=== PATIENT | female | born 1950 | race Caucasian/White ===

== ENCOUNTER 2024-06-28 07:55 | Outpatient (AMB) | payer MEDICARE, MEDICAID, SELFPAY ==
--- NOTE | 2024-06-28 07:58 | A.OFFVIS_ITS ---
Vital Signs 06/28/24 08:24 Height 5 ft 7 in Weight 134 lb 14.766 oz BMI 21.1 BP 100/70 Blood Pressure Location Rt brachial Position Sitting Pulse 78 Pulse Source Pulse Oximeter Pulse Oximetry (%) 98 Oxygen Delivery Method Room Air Intake Visit Reasons: [place] screening. Poss. Crohn's Intake Note: NEW PATIENT for repeat colo screening (last within 3 years via [facility]). Crohn's consult. Heavy FMHx reported. Chief Complaint; C/O constipation (moderate to severe per pt). Pt reports hx of GERD but well controlled with omeprazole. Pt denies any additional GI concerns at this time. Lining Maker Hand Required: No Accompanied by: Self / Same As Patient Allergies azithromycin Allergy (Unknown, Verified 06/28/24 08:13) Unknown cefaclor [From Ceclor] Allergy (Unknown, Verified 06/28/24 08:13) Unknown moxifloxacin Allergy (Unknown, Verified 06/28/24 08:13) Unknown codeine Adverse Reaction (Intermediate, Verified 06/28/24 08:13) Abdominal Pain morphine Adverse Reaction (Intermediate, Verified 06/28/24 08:13) Abdominal Pain HPI HPI [place] screening. Poss. Crohn's: Details: 74-year-old female with past medical history of arthritis, aortic valve regurgitation, anxiety is here today for initial consultation. Patient reports left lower quadrant pain and constipation. Patient reports that she has been taking Colace and usually feels like she empties her bowels well. Patient was seen in the ER on June 12 for shortness breath, chest pain and fall. ACS ruled out with EKGs and troponin, CT scan performed and it showed no acute processes except for large colonic stool burden without obstruction. Patient reports colonoscopy lost 2 years ago at [facility] unable to get port at this time, will request medical records. Patient reports also colonoscopy in the past in [place] years. Patient reports that she has a family history of Crohn's disease. Was told in the past that she has diverticulosis. No polyps found as far as she remembers. However she was told to return for colonoscopy in 5 years. Patient denies melena, hematochezia, unintentional weight loss or ribbon like stools. Patient is denies any dyspepsia, dysphagia or odynophagia. Patie nt reports left lower quadrant pain, relieved after bowel movement. Frequent abdominal bloating [facility] Medical History (Updated 06/28/24 @ 10:56 by Becca Ha, [facility]) Constipation Anxiety GERD (gastroesophageal reflux disease) Arthritis Family history of Crohn's disease Hyperlipidemia Surgical History (Updated 06/28/24 @ 08:18 by Scto Valero [facility]) Hx of colonoscopy (~2022) Family History (Updated 06/28/24 @ 08:19 by NASRIN Osullivan) Family/Other Crohn disease Review of Systems Const Denies weight gain and Denies weight loss ENT Reports no additional complaints, Denies dysphagia and Denies odynophagia Card Reports no additional complaints Resp Reports no additional complaints GI Reports abdominal pain (LLQ), Denies belching, Denies melena, Reports bloating, Denies change in bowel habits, Reports constipation, Denies dysphagia, Denies excessive flatus, Denies dyspepsia, Denies heartburn, Denies diarrhea, Denies loose stools, Denies nausea, Denies odynophagia and Denies vomiting Reports no additional complaints Musc Reports no additional complaints Neuro Reports no additional complaints Psych Reports no additional complaints Endo Reports no additional complaints Physical Exam Vital Signs: Last Vital Signs Pulse 78 06/28/24 08:24 BP 100/70 06/28/24 08:24 Pulse Ox 98 06/28/24 08:24 Oxygen Delivery Method Room Air 06/28/24 08:24 BMI result Body Mass Index 21.1 Const General: healthy appearing, no acute distress and well developed Nutritional Appearance: well nourished Orientation/consciousness: patient oriented x3 Resp Effort & Inspection: normal respiratory effort, able to speak in complete sentences, no tracheal deviation and symmetric chest movement Auscultation: clear to auscultation bilaterally Cardio Rate: regular rate GI Inspection: Yes normal to inspection and No distended Palpation (GI): Soft to palpation, not firm, nontender and No hepatosplenomegaly present Auscultation: normal bowel sounds General: Yes no CVA tenderness Back/Spine/Pelvis Back: no CVA tenderness Skin General skin exam: elasticity normal, turgor normal and dry skin Neuro General: patient oriented x3 Psych Appearance: grossly normal Mental Status: mental status grossly normal Assessment & Plan Assessment & Plan (1) Family history of Crohn's disease: Code(s): Z83.79 - Family history of other diseases of the digestive system Category: Medical (2) Postprandial abdominal bloating: Code(s): R14.0 - Abdominal distension (gaseous) (3) GERD (gastroesophageal reflux disease): Code(s): K21.9 - Gastro-esophageal reflux disease without esophagitis Qualifiers: Esophagitis presence: esophagitis presence not specified Qualified Code(s): K21.9 - Gastro-esophageal reflux disease without esophagitis (4) Constipation: Code(s): K59.00 - Constipation, unspecified Qualifiers: Constipation type: slow transit constipation Qualified Code(s): K59.01 - Slow transit constipation (5) Diverticulosis: Code(s): K57.90 - Diverticulosis of intestine, part unspecified, without perforation or abscess without bleeding Plan Will rule out Crohn's, CRP and fecal calprotectin. Patient will try Benefiber with pre and probiotics. Will start her on senna. If CRP and calprotectin positive patient will be sent for colonoscopy and then possible CT enterography. Increase fluid intake and activity to promote better bowel motility. Patient is agreeable to current plan of care and verbalizes understanding of instructions. She was given the opportunity to ask questions and all questions answered. Thank you for allowing me to participate in her care Orders: Orders C Reactive Protein Today K58.9 - Irritable bowel syndrome, unspecified Calprotectin, Fecal Today R15.9 - Full incontinence of feces Medications: New sennosides (Natural Senna Laxative) 17.2 mg (2 x 8.6 mg) PO BEDTIME 60 tabs 3RF constipation K59.00 - Constipation, unspecified Coding Level of Care Code New Pt Level 3 (46946) Diagnoses Family history of Crohn's disease Z83.79 Postprandial abdominal bloating R14.0 Gastroesophageal reflux disease, unspecified whether esophagitis present K21.9 Esophagitis presence: esophagitis presence not specified Slow transit constipation K59.01 Constipation type: slow transit constipation Diverticulosis K57.90 Time Spent (min) 40 Comment 30 minutes spent with patient and additional 10 minutes spent reviewing her records
--- OUTSIDE RECORDS SUMMARY | 2024-06-28 08:00 | XMS_ITS | Clinical Summary ---
Author Organization [address] [place] [address] [place] [phone] Phone Care Team Providers Care Machine Paint Mixer Name Role Phone Kathia Durand Primary Care Provider Allergies Active Allergy Reactions Criticality Noted Date Comments Cefaclor 03/27/2018 Erythromycin 03/27/2018 Moxifloxacin 03/27/2018 Medications inclisiran (Leqvio) 284 mg/1.5 mL syringe injcetion Inject 1.5 mL into the skin Every 3 Months. 4 Active omega 5-ufl-umj-fish oil (Fish OiL) 1,200 (144-216) mg capsule Take by mouth 2 times daily. 2 Active UNABLE TO FIND Take by mouth 1 (one) time each day. VITAMIN D OR Active ALPRAZolam (XANAX) 1 mg tablet Take 1 mg by mouth at bedtime. Active oxyCODONE-acet aminophen (PERCOCET) 7.5-325 mg per tablet Take 1 tablet by mouth every 4 (four) hours if needed. Active cyanocobalamin (VITAMIN B-12) 1,000 mcg tablet Take 1 tablet (1,000 mcg total) by mouth 1 (one) time each day. Active rosuvastatin (CRESTOR) 20 mg tablet Take 1 tablet (20 mg total) by mouth 1 (one) time each day. Active aspirin 81 mg EC tablet TAKE 1 TABLET BY MOUTH EVERY DAY 90 tablet 1 5 Active aspirin 81 mg EC tablet Take 1 tablet (81 mg total) by mouth 1 (one) time each day. 4 06/18/19 25 Discontinued Active Problems Problem Noted Date Diagnosed Date Carotid bruit 06/23/2023 Carotid artery disease 01/12/2021 Overview (03/22/2024): Last Assessment & Plan: She has history of mild carotid artery disease as outlined in detail above. Her most recent carotid duplex shows no significant change when compared to her previous duplex from 2021. We once again discussed risk factor reducing strategies such as taking an aspirin and being on a statin. She is now agreeable to start these and she will begin a baby aspirin along with a low-dose rosuvastatin. Chest pain 01/12/2021 Overview (03/22/2024): Last Assessment & Plan: Patient is reporting recurrent chest discomfort. Will start amlodipine and anginal and arrange for nuclear stress test. Coronary artery calcification 01/12/2021 Overview (03/22/2024): Last Assessment & Plan: We once again discussed her history of aortic calcification captured on CT scan in the past. She has undergone extensive cardiac workup including a stress test and echocardiogram as outlined in detailed above. We had a long discussion again regarding risk after modifying strategies. She is quite anxious regarding her brother's and is concerned that she is not on any medical therapies for her heart. Once again reviewed all of her testing results and recommendations for aspirin and statin. She is agreeable and we will update a lipid panel in 12 weeks. I have reviewed with the patient the importance of a heart healthy lifestyle which includes eating a low-fat low-salt diet, getting regular exercise, maintaining a healthy weight, not smoking, and following up with routine medical care. Mixed hyperlipidemia 01/12/2021 Overview (03/22/2024): Last Assessment & Plan: Goal LDL cholesterol is less than 70. She is willing to restart statin. In the past we did discuss PSK 9 inhibitors such as Repatha and Praluent. We also discussed Leqvio in the past and we did order this. It is unclear if she decided not to move forward with this. She did not mention this today. This is still an option if she is willing in the future. Encounters Date Type Department Care Team Description 06/11/2024 Telephone [facility] - [address] [place] [address] Karan Pedroza MD Chest Pain 05/11/2024 3:00 PM EST Office Visit [facility] - [facility] [address] [facility] [address] [place] [phone] Karan Pedroza MD Bilateral carotid artery disease, unspecified type (CMS/HCC) (Primary Dx); Coronary artery calcification; Mixed hyperlipidemia from Last 3 Months Medical History Medical History Date Comments Family history of cardiovascular disease DX:Family history of cardiovascular disease Hypercholesterolemia DX:Hypercho lesterolemia Family History Medical History Relation Name Comments Heart attack Father Relation Name Status Comments Father Social History Tobacco Use Types Packs/Day Years Used Date Smoking Tobacco: Former Smokeless Tobacco: Never Alcohol Use Standard Drinks/Week Comments Not Currently 0 (1 standard drink = 0.6 oz pur e alcohol) Comments Unknown Sex and Gender Information Value Date Recorded Sex Assigned at Not on file Legal Sex Female 6:23 AM EST Gender Identity Not on file Sexual Orientation Not on file Obstetrics History Last Filed Vital Signs Vital Sign Reading Time Taken Comments Blood Pressure 122/60 05/11/2024 3:15 PM EST Pulse 82 05/11/2024 3:15 PM EST Temperature - - Respiratory Rate - - Oxygen Saturation 96% 05/11/2024 3:15 PM EST Inhaled Oxygen Concentration - - Weight 60.3 kg (133 lb) 05/11/2024 3:15 PM EST Height 170.2 cm (5' 7 ) 05/11/2024 3:15 PM EST Body Mass Index 20.83 05/11/2024 3:15 PM EST Plan of Treatment Health Maintenance Due Date Last Done Comments Breast Cancer Screening 1950 Zoster Vaccines (1 of 2) 01/02/2002 Pneumococcal Vaccine: 50+ Years (2 of 2 - PPSV23) 07/10/2019 07/09/2018 Cholesterol Screening (Lipid Panel) 03/17/2022 Colorectal Cancer Screening: Colonoscopy 03/17/2022 Depression Screening 03/17/2022 Falls Risk Assessment 03/17/2022 Hepatitis C Screening 03/17/2022 Medicare Annual Wellness Visit 03/17/2022 Osteoporosis Screening (Bone Density Screening) 03/17/2022 Social Influencers of Health Screening 03/17/2022 Hypertension/CHF/CAD Annual BMP Blood Test 11/11/2023 08/04/2000 COVID-19 Vaccine ( season) 2023 03/19/2021, 07/21/2020, 06/24/2020 Influenza Vaccine (#1) 2023 0, 07/10/2018, 07/09/2018, Additional history exists RSV Immunization Patients 60+ Years Old (1 - 1-dose 75+ series) 01/02/2027 DTaP,Tdap,and Td Vaccines (3 - Td or Tdap) 06/10/2029 06/10/2019, 07/30/2017 HIB Vaccines Aged Out No longer eligi ble based on patient's age to complete this topic HPV Vaccines Aged Out No longer eligi ble based on patient's age to complete this topic Hepatitis A Vaccines Aged Out No long er eligible based on patient's age to complete this topic Hepatitis B Vaccines Aged Out No long er eligible based on patient's age to complete this topic IPV Vaccines Aged Out No longer eligi ble based on patient's age to complete this topic MMR Vaccines Aged Out No longer eligi ble based on patient's age to complete this topic Meningococcal ACWY Vaccine Aged Out N o longer eligible based on patient's age to complete this topic Meningococcal B Vacine Aged Out No lo nger eligible based on patient's age to complete this topic RSV Immunization Patients Under 20 months Aged Out No longer eligible based on patient's age to complete this topic Varicella Vaccines Aged Out No longer eligible based on patient's age to complete this topic Procedures Procedure Name Priority Date/Time Associated Diagnosis Comments ANNUAL BMP BLOOD TEST Routine 08/04/2000 from Last 3 Months or Most Recently Relevant to Health Maintenance Results * Annual BMP Blood Test (08/04/2000) Annual BMP Blood Test abstracted us Historical Provider HEALTH MAINTENANCE Final Result from Last 3 Months or Most Recently Relevant to Health Maintenance Insurance MEDICA[place] - [place] MEDICARE Advance Directives Documents on File Type Date Recorded 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 Expl anation Health Care Decision (hx) 12/07/2012 AD CABRALES DIRECTIVE Health Care Decision (hx) 12/07/2012 AD CABRALES DIRECTIVE Health Care Decision (hx) 12/07/2012 AD CABRALES DIRECTIVE Health Care Decision (hx) 12/07/2012 AD CABRALES DIRECTIVE Health Care Decision (hx) 12/07/2012 AD CABRALES DIRECTIVE Health Care Decision (hx) 12/07/2012 AD CABRALES DIRECTIVE Health Care Decision (hx) 12/07/2012 AD CABRALES DIRECTIVE Health Care Decision (hx) 12/07/2012 AD CABRALES DIRECTIVE Health Care Decision (hx) 12/07/2012 AD CABRALES DIRECTIVE Health Care Decision (hx) 12/07/2012 AD CABRALES DIRECTIVE Health Care Decision (hx) 12/07/2012 AD CABRALES DIRECTIVE Health Care Decision (hx) 12/07/2012 AD CABRALES DIRECTIVE Health Care Decision (hx) 12/07/2012 AD CABRALES DIRECTIVE Care Teams Machine Paint Mixer Relationship Specialty Start Date End Date Kathia Durand PA [address] [place] [address] [address] [place] [address] PCP - General Internal Medicine 08/23/21
--- OUTSIDE RECORDS SUMMARY | 2024-06-28 08:00 | XMS_ITS | Encounter Summary ---
Author Organization [facility] Address [address] [place] [phone] Care Team Providers Care Clay Carman Name Role Phone Kathia Durand Primary Care Provider Reason for Visit * Reason Onset Date Comments Chest Pain 06/11/2024 Encounter Details Date Type Department Care Team (Late st Contact Info) Description 06/11/2024 Telephone [facility] [address] [facility] [address] [place] [phone] Karan Pedroza MD [address] [place] [address] Chest Pain Social History Tobacco Use Types Packs/Day Years Used Date Smoking Tobacco: Former Smokeless Tobacco: Never Alcohol Use Standard Drinks/Week Comments Not Currently 0 (1 standard drink = 0.6 oz pur e alcohol) Comments Unknown Sex and Gender Information Value Date Recorded Sex Assigned at Not on file Legal Sex Female 6:23 AM EST Gender Identity Not on file Sexual Orientation Not on file documented as of this encounter Progress Notes * Kaylen Canales NP - 06/11/2024 12:55 PM EST Noted; agree with recommendations. Thank you. * Daniel Marlow RN - 06/11/2024 12:01 PM EST JOSÉ MANUEL 05/11/[address] Pedroza, per notes: She continues to get atypical chest pain to the left of the chest at rest. It has been going on for for 5 years. It can last hours at a time but it is not sosevere and she goes to the hospital. She did go to the ER twice for this over the last few years and everything checked out fine. She is a vegetarian. She eats carefully she keeps her weight down. She is an ex-smoker but has not smoked in a long time . Called pt this PM. States chest pressure is different then she has had in the past. 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 States nursing home through cleaning the house she developed a chest/pressure/burning feeling across her chest at breastlevel moving across from left to right with SOB. Chest pressure at that time felt like someone sitting on her chest. States she thought about going to the ER but she did not. Denied nausea, jaw pain.States she had been doing better after that incident (still had ongoing chest pressure but not as in tense) but then again last night developed the same S/S after doing house cleaning in a different location. States episode last night was intense. She did not go to the ER. States she has continuing chest pressure just less intense today with no SOB/was not SOB on the phone. States she already wentto [facility] this AM but saw how crowded it was and decided to go back home. Made aware she needs to beevaluated in the ER today MAC for ongoing chest discomfort. Made aware to call 911. Refusing to call 911, states she will have one of her daughters drive her to [facility]. Made aware of risks involved if not calling for an ambulance. Made aware to call office back once D[facility] for an update and to schedule HFU. * Destiny Bal - 06/11/2024 11:33 AM EST The patient called, for the past 5 days she has had a burning/ achey sensation in her chest. It hasbeen on and off, it is triggered or made worse by activity. Please call her back at [phone]. documented in this encounter Plan of Treatment Not on file documented as of this encounter Visit Diagnoses Not on filedocumented in this encounter Care Teams Clay Carman Relationship Specialty Start Date End Date Kathia Durand PA [address] [facility] [address] [place] [phone] PCP - General Internal Medicine 08/23/21 documented as of this encounter
[2024-06-28 08:24] VITALS: BP 100/70; PULSE 78; O2SAT 98; BMI 21.1
== END 2024-06-28 09:13 | disposition home or self-care (01) ==
LOC: HO.HGI 07:56
PROVIDERS: PCP Physician Assistant Medical; Visit Provider Nurse Practitioner Family
DX: Z83.79 Family history of other diseases of the digestive system (principal); R14.0 Abdominal distension (gaseous); K21.9 Gastro-esophageal reflux disease without esophagitis; K59.01 Slow transit constipation; K57.90 Diverticulosis of intestine, part unspecified, without perforation or abscess without bleeding
CPT/HCPCS: 99203

== ENCOUNTER 2024-06-28 07:55 | Outpatient (REF) | payer MEDICARE, MEDICAID, SELFPAY ==
[2024-06-28 09:41] LABS: C Reactive Protein 0.27 mg/dL (< or = 0.50)
== END 2024-06-28 07:56 | disposition home or self-care (01) ==
LOC: HO.LAB 07:55
PROVIDERS: PCP Physician Assistant Medical; Visit Provider Nurse Practitioner Family
DX: K58.9 Irritable bowel syndrome, unspecified (principal); R19.5 Other fecal abnormalities; K59.01 Slow transit constipation; K57.90 Diverticulosis of intestine, part unspecified, without perforation or abscess without bleeding; R14.0 Abdominal distension (gaseous); K21.9 Gastro-esophageal reflux disease without esophagitis; Z83.79 Family history of other diseases of the digestive system
CPT/HCPCS: 36415; 86140; 99202

== ENCOUNTER 2024-06-29 15:35 | Outpatient (REF) | payer MEDICARE, MEDICAID, SELFPAY ==
[2024-07-06 18:59] LABS: Calprotectin, Fecal 8 mcg/g
== END 2024-06-29 15:36 | disposition home or self-care (01) ==
LOC: HO.LNP 15:35
PROVIDERS: Visit Provider Nurse Practitioner Family
DX: R15.9 Full incontinence of feces (principal)
CPT/HCPCS: 83993

== ENCOUNTER 2024-07-07 16:09 | Outpatient (REF) | payer MEDICARE, MEDICAID, SELFPAY ==
[2024-07-07 17:18] LABS: Blood Urea Nitrogen 19 mg/dL (9-16); Estimated Glomerular Filt Rate > 60; Lipase 10 U/L (8-78)
[2024-07-08 20:58] LABS: Transglutaminase IgA <1.0 U/mL
== END 2024-07-07 16:10 | disposition home or self-care (01) ==
LOC: HO.LAB 16:09
PROVIDERS: PCP Physician Assistant Medical; Visit Provider Nurse Practitioner Family
DX: R10.11 Right upper quadrant pain (principal); Z83.79 Family history of other diseases of the digestive system; K21.9 Gastro-esophageal reflux disease without esophagitis; K59.03 Drug induced constipation; K57.90 Diverticulosis of intestine, part unspecified, without perforation or abscess without bleeding
CPT/HCPCS: 36415; 82565; 83690; 84520; 86364; 99212

== ENCOUNTER 2024-07-07 16:09 | Outpatient (AMB) | payer MEDICARE, MEDICAID, SELFPAY ==
--- NOTE | 2024-07-07 16:11 | A.OFFVIS_ITS ---
Vital Signs 07/07/24 16:20 Height 5 ft 7 in Weight 134 lb BMI 21.0 BP 122/68 Blood Pressure Location Rt brachial Position Sitting Pulse 76 Pulse Source Pulse Oximeter Pulse Oximetry (%) 97 Oxygen Delivery Method Room Air Intake Visit Reasons: Urgent FUV. GI infection? Intake Note: ESTABLISHED PATIENT for urgent / requested FUV for concern regarding possible GI infection. Chief Complaint; C/O LUQ pain which pt describes as a sharp, twisting pain . Pt also reports constipation persistence. Shaking and tremors also reported. Is Project Manager Required: No Accompanied by: Self / Same As Patient Allergies azithromycin Allergy (Unknown, Verified 07/20/24 10:53) Unknown cefaclor [From Ceclor] Allergy (Unknown, Verified 07/20/24 10:53) Unknown moxifloxacin Allergy (Unknown, Verified 07/20/24 10:53) Unknown codeine Adverse Reaction (Intermediate, Verified 07/20/24 10:53) Abdominal Pain morphine Adverse Reaction (Intermediate, Verified 07/20/24 10:53) Abdominal Pain HPI HPI Urgent FUV. GI infection?: Details: LAST VISIT Family history of Crohn's disease Postprandial abdominal bloating GERD (gastroesophageal reflux disease) Constipation Diverticulosis Plan Will rule out Crohn's, CRP and fecal calprotectin. Patient will try Benefiber with pre and probiotics. Will start her on senna. If CRP and calprotectin positive patient will be sent for colonoscopy and then possible CT enterography. Increase fluid intake and activity to promote better bowel motility. Patient is agreeable to current plan of care and verbalizes understanding of instructions. She was given the opportunity to ask questions and all questions answered. ? Thank you for allowing me to participate in her care Orders Orders C Reactive Protein Today K58.9 Calprotectin, Fecal Today R15.9 Medications New sennosides (Natural Senna Laxative) 17.2 mg (2 x 8.6 mg) PO BEDTIME 60 tabs 3RF constipation K59.00 TODAY'S VISIT Patient is here today for requested visit. Patient continues to have left lower quadrant pain. Unable to have a good bowel movement. Tried senna without good results. Patient started taking pnyc-xon-xmjpvlh stool softeners. Reports that she takes 2 every day. Bowel movement, however not always feeling like she is emptying her bowels well. Left lower quadrant pain and cramping. Patient reports that the pain feels like twisting. Reports to be feeling bloated. Occasional blood in his stool if she is straining. [facility] Medical History Traumatic rupture of rotator cuff of right shoulder Constipation Anxiety GERD (gastroesophageal reflux disease) Arthritis Family history of Crohn's disease Hyperlipidemia Surgical History Hx of colonoscopy (~2022) Family History Family/Other Crohn disease Review of Systems Const Denies weight gain and Denies weight loss ENT Reports no additional complaints, Denies dysphagia and Denies odynophagia Card Reports no additional complaints Resp Reports no additional complaints GI Reports abdominal pain (LLQ), Denies belching, Denies melena, Reports bloating, Denies change in bowel habits, Reports constipation, Denies dysphagia, Denies excessive flatus, Denies dyspepsia, Denies heartburn, Denies diarrhea, Denies loose stools, Denies nausea, Denies odynophagia and Denies vomiting Reports no additional complaints Musc Reports no additional complaints Neuro Reports no additional complaints Psych Reports no additional complaints Endo Reports no additional complaints Physical Exam Vital Signs: Last Vital Signs Pulse 76 07/07/24 16:20 BP 122/68 07/07/24 16:20 Pulse Ox 97 07/07/24 16:20 Oxygen Delivery Method Room Air 07/07/24 16:20 BMI result Body Mass Index 21.0 Const General: healthy appearing, no acute distress and well developed Nutritional Appearance: well nourished Orientation/consciousness: patient oriented x3 Resp Effort & Inspection: normal respiratory effort, able to speak in complete sentences, no tracheal deviation and symmetric chest movement Auscultation: clear to auscultation bilaterally Cardio Rate: regular rate GI Inspection: Yes normal to inspection and No distended Palpation (GI): Soft to palpation, not firm, Tenderness to palpation present (GI) (LLQ) and No hepatosplenomegaly present Auscultation: Hyperactive bowel sounds present General: Yes no CVA tenderness Back/Spine/Pelvis Back: no CVA tenderness Skin General skin exam: elasticity normal, turgor normal and dry skin Neuro General: patient oriented x3 Psych Appearance: grossly normal Mental Status: mental status grossly normal Results Reviewed Results Reviewed: Laboratory Tests 06/28/24 06/29/24 08:59 01:00 C-Reactive Protein 0.27 Stool Calprotectin 8 Assessment & Plan Assessment & Plan (1) Family history of Crohn's disease: Code(s): Z83.79 - Family history of other diseases of the digestive system Category: Medical (2) Postprandial abdominal bloating: Code(s): R14.0 - Abdominal distension (gaseous) (3) GERD (gastroesophageal reflux disease): Code(s): K21.9 - Gastro-esophageal reflux disease without esophagitis Qualifiers: Esophagitis presence: esophagitis presence not specified Qualified Code(s): K21.9 - Gastro-esophageal reflux disease without esophagitis (4) Constipation: Code(s): K59.00 - Constipation, unspecified Qualifiers: Constipation type: drug induced constipation Qualified Code(s): K59.03 - Drug induced constipation (5) Diverticulosis: Code(s): K57.90 - Diverticulosis of intestine, part unspecified, without perforation or abscess without bleeding Plan Mild tenderness in left lower quadrant, CT scan will be ordered to check for diverticulitis. Will send patient amoxicillin. Will treat her as she does have symptoms and tenderness. She might not be able to get the CT scan soon enough. Will try to order stat. Patient will go to ER if she will continue with abdominal pain. Patient was encouraged to watch for blood or mucus. CRP negative normal stool calprotectin unlikely Crohn's or colitis. Patient does report occasional epigastric pain depending on what she eats which could be reflux, however patient is on omeprazole and she can continue taking that. Will send her to check lipase to rule out chronic pancreatitis and transglutaminase to rule out celiac. Patient will return in 2-3 weeks to re-evaluate. She is agreeable to this plan and verbalizes understanding of instructions. She was given the opportunity to ask questions and all questions answered. Thank you for allowing me to participate in her care Orders: Orders Creatinine 07/07/24 R10.11 - Right upper quadrant pain Blood Urea Nitrogen 07/07/24 R10.11 - Right upper quadrant pain CT abdomen pelvis w IV con 07/14/24 R10.9 - Unspecified abdominal pain, R10.12 - Left upper quadrant pain Transglutaminase IgA 07/07/24 R10.9 - Unspecified abdominal pain Lipase 07/07/24 R10.9 - Unspecified abdominal pain Medications: New amoxicillin 500 mg PO Q12H 14 tabs 0RF 7 days Discontinued sennosides Discontinued Reason: Doctor's Order 17.2 mg (2 x 8.6 mg) PO BEDTIME 60 tabs 3RF constipation K59.00 - Constipation, unspecified Coding Level of Care Code Est Pt Level 4 (74233) Complex EM visit Add On G2211 Diagnoses Family history of Crohn's disease Z83.79 Postprandial abdominal bloating R14.0 Gastroesophageal reflux disease, unspecified whether esophagitis present K21.9 Esophagitis presence: esophagitis presence not specified Drug-induced constipation K59.03 Constipation type: drug induced constipation Diverticulosis K57.90 Time Spent (min) 35 Comment 25 minutes spent with patient and additional 10 minutes spent reviewing her records
[2024-07-07 16:20] VITALS: BP 122/68; PULSE 76; O2SAT 97; BMI 21.0
== END 2024-07-07 16:37 | disposition home or self-care (01) ==
LOC: HO.HGI 16:10
PROVIDERS: PCP Physician Assistant Medical; Visit Provider Nurse Practitioner Family
DX: Z83.79 Family history of other diseases of the digestive system (principal); R14.0 Abdominal distension (gaseous); K21.9 Gastro-esophageal reflux disease without esophagitis; K59.03 Drug induced constipation; K57.90 Diverticulosis of intestine, part unspecified, without perforation or abscess without bleeding
CPT/HCPCS: 99214; G2211

== ENCOUNTER 2024-07-14 09:17 | Outpatient (REF) | payer MEDICARE, MEDICAID, SELFPAY ==
--- NOTE | ~2024-07-14 | CT_ITS ---
EXAMINATION: CT ABDOMEN PELVIS WITH IV CONTRAST HISTORY: R10.9 - Unspecified abdominal pain COMPARISON: There are no prior studies for comparison. TECHNIQUE: CT scan of the abdomen and pelvis was performed following administration of 85 mL Omnipaque 350 using standard departmental protocol. Coronal and sagittal reformatted images were generated and reviewed. The patient received oral contrast material. This CT exam was performed with one or more of the following dose reduction techniques: automated exposure control, adjustment of the mA and/or kV according to patient size, use of iterative reconstruction technique. DLP: 399 mGy-cm FINDINGS: LOWER CHEST: There is linear scarring at the left lung base. The visualized right lung base is clear. There is no pleural effusion. CARDIOVASCULATURE: The heart is normal in size. There is no pericardial effusion. LIVER: The liver is normal in size and contour. No liver mass is identified. The hepatic and portal veins are patent. GALLBLADDER / BILE DUCTS: The gallbladder is unremarkable. There is no intra or extrahepatic biliary ductal dilatation. SPLEEN: The spleen is normal in size. No focal splenic lesion is identified. PANCREAS: The pancreas is unremarkable in appearance. ADRENAL GLANDS: Within normal limits. KIDNEYS/RETROPERITONEUM: No renal calculi are identified. There is no hydronephrosis. No renal masses are identified. LYMPH NODES: No abdominal or pelvic lymphadenopathy. VASCULATURE: The abdominal aorta demonstrates atherosclerotic calcification, but is normal in caliber. MESENTERY/PERITONEUM: No free fluid. No masses. There is no free intraperitoneal gas. STOMACH: The stomach is collapsed, limiting evaluation. SMALL BOWEL: The small bowel is normal in caliber. COLON: The colon is unremarkable. APPENDIX: Normal. URINARY BLADDER/PELVIC ORGANS: The urinary bladder is collapsed, limiting evaluation. The uterus is unremarkable. BONES / SOFT TISSUES: There is degenerative disc disease of the spine. There is grade I spondylolisthesis of L4 on L5. CT/CT abdomen pelvis w IV con IMPRESSION: No inflammatory process is identified. Electronically signed by: Marco Antonio Larsen MD 07/14/2024 12:14 PM EDT
--- OUTSIDE RECORDS SUMMARY | 2024-07-14 10:19 | XMS_ITS | Clinical Summary ---
Author Organization [address] [place] [address] [place] [phone] Phone Care Team Providers Care Psychiatric Aides Teacher Name Role Phone Kathia Durand Primary Care Provider Allergies Active Allergy Reactions Criticality Noted Date Comments Cefaclor 03/27/2018 Erythromycin 03/27/2018 Moxifloxacin 03/27/2018 Medications inclisiran (Leqvio) 284 mg/1.5 mL syringe injcetion Inject 1.5 mL into the skin Every 3 Months. 4 Active omega 2-crw-vuj-fish oil (Fish OiL) 1,200 (144-216) mg capsule [...] Type Department Care Team Description 06/11/2024 Telephone [facility] - [address] [place] [address] Karan Pedroza MD Chest Pain 05/11/2024 3:00 PM EST Office Visit [facility] - [facility] [address] [facility] [address] [place] [phone] Karan Pedroza MD Bilateral carotid artery disease, [...] season) 2023 03/19/2021, 07/21/2020, 06/24/2020 Influenza Vaccine (Season Ended) 2024 02/02/2020, 07/10/2018, 07/09/2018, Additional history exists RSV Immunization Adult Patients (1 - 1-dose 75+ series) 01/02/2027 DTaP,Tdap,and [...] Test (08/04/2000) Annual BMP Blood Test abstracted Historical Provider MD HEALTH MAINTENANCE Final Result from Last 3 Months or Most Recently Relevant to Health Maintenance Insurance MEDICAID - [place] MEDICARE Advance Directives Documents on File Type Date Recorded 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
[2024-07-14] MEDS: iohexoL 350 MG/ML 100 ML INFUS..BTL IV (11:58)
[2024-07-14] MEDS: Barium Sulfate Oral (Berry) 450 ML ORAL.SUSP PO ×2 (11:59)
== END 2024-07-14 09:18 | disposition home or self-care (01) ==
LOC: HO.CT 09:17
PROVIDERS: PCP Physician Assistant Medical; Visit Provider Nurse Practitioner Family
DX: R10.9 Unspecified abdominal pain (principal); R10.12 Left upper quadrant pain
CPT/HCPCS: 74177; Q9967

== ENCOUNTER → 2024-07-14 09:20 | Outpatient (BNV) | payer MEDICARE, MEDICAID, SELFPAY | PROVIDERS: PCP Physician Assistant Medical; Visit Provider Radiology Diagnostic Radiology | DX: R10.9 Unspecified abdominal pain (principal) | CPT/HCPCS: 74177 ==

== ENCOUNTER 2024-07-20 10:44 | Outpatient (AMB) | payer MEDICARE, MEDICAID, SELFPAY ==
--- NOTE | 2024-07-20 10:52 | A.OFFVIS_ITS ---
Vital Signs 07/20/24 11:01 Height 5 ft 7 in Weight 131 lb 6.328 oz BMI 20.6 BP 138/72 Blood Pressure Location Rt brachial Position Sitting Pulse 66 Pulse Source Pulse Oximeter Pulse Oximetry (%) 100 Oxygen Delivery Method Room Air Intake Visit Reasons: 2 week FUV. Intake Note: ESTABLISHED PATIENT for abd pain and constipation mgmt. Chief Complaint; C/O constipation persistence, mild to moderate rectal bleeding. LLQ pain. 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 Required: No Allergies azithromycin Allergy (Unknown, Verified 07/20/24 10:53) Unknown cefaclor [From Ceclor] Allergy (Unknown, Verified 07/20/24 10:53) Unknown moxifloxacin Allergy (Unknown, Verified 07/20/24 10:53) Unknown codeine Adverse Reaction (Intermediate, Verified 07/20/24 10:53) Abdominal Pain morphine Adverse Reaction (Intermediate, Verified 07/20/24 10:53) Abdominal Pain HPI HPI 2 week FUV.: Details: LAST VISIT Family history of Crohn's disease Postprandial abdominal bloating GERD (gastroesophageal reflux disease) Constipation Diverticulosis Plan Mild tenderness in left lower quadrant, CT scan will be ordered to check for diverticulitis. Will send patient amoxicillin. Will treat her as she does have symptoms and tenderness. She might not be able to get the CT scan soon enough. Will try to order stat. Patient will go to ER if she will continue with abdominal pain. Patient was encouraged to watch for blood or mucus. CRP negative normal stool calprotectin unlikely Crohn's or colitis. Patient does report occasional epigastric pain depending on what she eats which could be reflux, however patient is on omeprazole and she can continue taking that. Will send her to check lipase to rule out chronic pancreatitis and transglutaminase to rule out celiac. Patient will return in 2-3 weeks to re-evaluate. She is agreeable to this plan and verbalizes understanding of instructions. She was given the opportunity to ask questions and all questions answered. ? Thank you for allowing me to participate in her care Orders Orders Creatinine 07/07/24 R10.11 Blood Urea Nitrogen 07/07/[address] abdomen pelvis w IV con 07/14/24 R10.9, R10.12 Transglutaminase IgA 07/07/24 R10.9 Lipase 07/07/24 R10.9 Medications New amoxicillin 500 mg PO Q12H 14 tabs 0RF 7 days Discontinued sennosides Discontinued Reason: Doctor's Order 17.2 mg (2 x 8.6 mg) PO BEDTIME 60 tabs 3RF constipation K59.00 TODAY'S VISIT Patient is here today for follow-up. Patient had CT scan that was completely normal. No diverticulitis. Patient did however completed amoxicillin. She started day before she had the CT scan. Patient reports that she takes stool stool softeners and not always moves her bowels well. As mentioned last visit patient tried senna and it was not helpful. Patient denies melena, hematochezia. Started low FODMAP diet and following the list that was provided to her last visit. Doing little better, less bloated, however she continues to have trouble emptying her bowels. Patient reports that she takes Percocet only once in awhile. Patient reports right need pain and right shoulder pain after fall. Patient denies any epigastric pain. Last visit we ordered lipase and transglutaminase that were normal. Patient denies any nausea or vomiting. Denies any mucus in her stools. We have ruled out inflammatory bowel disease [facility] Medical History Traumatic rupture of rotator cuff of right shoulder Constipation Anxiety GERD (gastroesophageal reflux disease) Arthritis Family history of Crohn's disease Hyperlipidemia Surgical History Hx of colonoscopy (~2022) Family History Family/Other Crohn disease Review of Systems Const Denies weight gain and Denies weight loss ENT Reports no additional complaints, Denies dysphagia and Denies odynophagia Card Reports no additional complaints Resp Reports no additional complaints GI Reports abdominal pain (LLQ), Denies belching, Denies melena, Reports bloating, Denies change in bowel habits, Reports constipation, Denies dysphagia, Denies excessive flatus, Denies dyspepsia, Denies heartburn, Denies diarrhea, Denies loose stools, Denies nausea, Denies odynophagia and Denies vomiting Reports no additional complaints Musc Reports no additional complaints Neuro Reports no additional complaints Psych Reports no additional complaints Endo Reports no additional complaints Physical Exam Vital Signs: Last Vital Signs Pulse 66 07/20/24 11:01 BP 138/72 07/20/24 11:01 Pulse Ox 100 07/20/24 11:01 Oxygen Delivery Method Room Air 07/20/24 11:01 BMI result Body Mass Index 20.6 Const General: healthy appearing, no acute distress and well developed Nutritional Appearance: well nourished Orientation/consciousness: patient oriented x3 Resp Effort & Inspection: normal respiratory effort, able to speak in complete sentences, no tracheal deviation and symmetric chest movement Auscultation: clear to auscultation bilaterally Cardio Rate: regular rate GI Inspection: Yes normal to inspection and No distended Palpation (GI): Soft to palpation, not firm, nontender and No hepatosplenomegaly present Auscultation: normal bowel sounds General: Yes no CVA tenderness Back/Spine/Pelvis Back: no CVA tenderness Skin General skin exam: elasticity normal, turgor normal and dry skin Neuro General: patient oriented x3 Psych Appearance: grossly normal Mental Status: mental status grossly normal Results Reviewed Results Reviewed: CT SCAN OF ABDOMEN AND PELVIS 07/14/2024 FINDINGS: LOWER CHEST: There is linear scarring at the left lung base. The visualized right lung base is clear. There is no pleural effusion. CARDIOVASCULATURE: The heart is normal in size. There is no pericardial effusion. LIVER: The liver is normal in size and contour. No liver mass is identified. The hepatic and portal veins are patent. GALLBLADDER / BILE DUCTS: The gallbladder is unremarkable. There is no intra or extrahepatic biliary ductal dilatation. SPLEEN: The spleen is normal in size. No focal splenic lesion is identified. PANCREAS: The pancreas is unremarkable in appearance. ADRENAL GLANDS: Within normal limits. KIDNEYS/RETROPERITONEUM: No renal calculi are identified. There is no hydronephrosis. No renal masses are identified. LYMPH NODES: No abdominal or pelvic lymphadenopathy. VASCULATURE: The abdominal aorta demonstrates atherosclerotic calcification, but is normal in caliber. MESENTERY/PERITONEUM: No free fluid. No masses. There is no free intraperitoneal gas. STOMACH: The stomach is collapsed, limiting evaluation. SMALL BOWEL: The small bowel is normal in caliber. COLON: The colon is unremarkable. APPENDIX: Normal. URINARY BLADDER/PELVIC ORGANS: The urinary bladder is collapsed, limiting evaluation. The uterus is unremarkable. BONES / SOFT TISSUES: There is degenerative disc disease of the spine. There is grade I spondylolisthesis of L4 on L5. CT/CT abdomen pelvis w IV con IMPRESSION: No inflammatory process is identified. Laboratory Tests 07/07/24 16:56 Lipase 10 Tiss Transglutamin IgA <1.0 Assessment & Plan Assessment & Plan (1) IBS (irritable bowel syndrome): Code(s): K58.9 - Irritable bowel syndrome, unspecified Qualifiers: Irritable bowel syndrome type: with constipation Qualified Code(s): K58.1 - Irritable bowel syndrome with constipation (2) Family history of Crohn's disease: Code(s): Z83.79 - Family history of other diseases of the digestive system Category: Medical (3) Postprandial abdominal bloating: Code(s): R14.0 - Abdominal distension (gaseous) (4) GERD (gastroesophageal reflux disease): Code(s): K21.9 - Gastro-esophageal reflux disease without esophagitis (5) Constipation: Code(s): K59.00 - Constipation, unspecified (6) Diverticulosis: Code(s): K57.90 - Diverticulosis of intestine, part unspecified, without perforation or abscess without bleeding Plan Lab results and CT scan reviewed with patient again. Continues to have trouble emptying her bowels. Will order Dulcolax, however if this will not work patient will call us next week and we can start her on Linzess. Patient is experiencing IBS symptoms with constipation. Patient was encouraged to increase fluid intake and activity to promote better bowel motility. Patient had completely normal CT scan. Her pain is in left lower quadrant, no diverticulitis on CT scan. Continue low FODMAP diet. Patient will return in 3 weeks. We would like to send her for colonoscopy, however patient will need to move her bowels better. She is agreeable to current plan of care and verbalizes understanding of instructions. She was given the opportunity to ask questions and all questions answered. Thank you for allowing me to participate in her care Medications: New bisacodyl (Dulcolax (bisacodyl)) 10 mg (2 x 5 mg) PO BEDTIME 60 tabs 4RF Coding Level of Care Code Est Pt Level 4 (12888) Complex EM visit Add On G2211 Diagnoses Irritable bowel syndrome with constipation K58.1 Irritable bowel syndrome type: with constipation Family history of Crohn's disease Z83.79 Postprandial abdominal bloating R14.0 GERD (gastroesophageal reflux disease) K21.9 Constipation K59.00 Diverticulosis K57.90 Time Spent (min) 35 Comment 20 minutes spent with patient and additional 15 minutes spent reviewing her records
[2024-07-20 11:01] VITALS: BP 138/72; PULSE 66; O2SAT 100; BMI 20.6
--- OUTSIDE RECORDS SUMMARY | 2024-07-20 12:59 | XMS_ITS | Clinical Summary ---
Author Organization [address] [place] [address] [place] [phone] Phone Care Team Providers Care Supervisor Name Role Phone Kathia Durand Primary Care Provider Allergies Active Allergy Reactions Criticality Noted Date Comments Cefaclor 03/27/2018 Erythromycin 03/27/2018 Moxifloxacin 03/27/2018 Medications inclisiran (Leqvio) 284 mg/1.5 mL syringe injcetion Inject 1.5 mL into the skin Every 3 Months. 06/18/2023 Active omega 9-daj-zxp-fish oil (Fish OiL) 1,200 (144-216) mg capsule Take by mouth 2 times daily. 02/22/2022 Active UNABLE TO FIND Take by mouth 1 (one) time each day. VITAMIN D OR Active ALPRAZolam (XANAX) 1 mg tablet Take 1 mg by mouth at bedtime. Active oxyCODONE-aceta minophen (PERCOCET) 7.5-325 mg per tablet Take 1 [...] BY MOUTH EVERY DAY 90 tablet 1 06/17/2024 Active Active Problems Problem Noted Date Diagnosed Date [...] Type Department Care Team Description 06/11/2024 Telephone [facility] - [address] [place] [address] Karan Pedroza MD Chest Pain 05/11/2024 3:00 PM EST Office Visit [facility] - [address] [place] [address] Karan Pedroza MD Bilateral carotid artery disease, [...] age to complete this topic Meningococcal B Vaccine Aged Out No l onger eligible based on patient's age to complete [...] Relevant to Health Maintenance Insurance [place]ID - [place]ICARE Advance Directives Documents on File Type Date Recorded 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
== END 2024-07-20 11:56 | disposition home or self-care (01) ==
PROVIDERS: PCP Physician Assistant Medical; Visit Provider Nurse Practitioner Family
DX: K58.1 Irritable bowel syndrome with constipation (principal); Z83.79 Family history of other diseases of the digestive system; R14.0 Abdominal distension (gaseous); K21.9 Gastro-esophageal reflux disease without esophagitis; K59.00 Constipation, unspecified; K57.90 Diverticulosis of intestine, part unspecified, without perforation or abscess without bleeding
CPT/HCPCS: 99214; G2211

== ENCOUNTER → 2024-07-20 10:44 | Outpatient (BNVA) | payer MEDICARE, MEDICAID, SELFPAY | PROVIDERS: PCP Physician Assistant Medical; Visit Provider Nurse Practitioner Family | DX: K58.1 Irritable bowel syndrome with constipation (principal); R14.0 Abdominal distension (gaseous); K21.9 Gastro-esophageal reflux disease without esophagitis; K59.00 Constipation, unspecified; K57.90 Diverticulosis of intestine, part unspecified, without perforation or abscess without bleeding; Z83.79 Family history of other diseases of the digestive system | CPT/HCPCS: 99212 ==

== ENCOUNTER 2024-08-17 09:55 | Outpatient (AMB) | payer MEDICARE, MEDICAID, SELFPAY ==
[2024-08-17 09:58] VITALS: BP 140/64; PULSE 82; O2SAT 100; BMI 20.4
--- NOTE | 2024-08-17 09:58 | MHC.OFFVIS ---
Vital Signs 08/17/24 09:58 Height 5 ft 7 in Weight 130 lb 6 oz BMI 20.4 BP 140/64 H Blood Pressure Location Rt brachial Position Sitting Pulse 82 Pulse Source Pulse Oximeter Pulse Oximetry (%) 100 Oxygen Delivery Method Room Air Intake Visit Reasons: 1 mos FUV. Intake Note: ESTABLISHED PATIENT for abd pain and constipation mgmt. Chief Complaint; C/O constipation persistence, LUQ chronic pain. Pt denies any additional sx or concerns at this time. Pt not noticing a great improvement in sx with Rx. 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: No Information Interpreted: clinical only Accompanied by: Self / Same As Patient Allergies azithromycin Allergy (Unknown, Verified 08/17/24 10:01) Unknown cefaclor [From Ceclor] Allergy (Unknown, Verified 08/17/24 10:01) Unknown moxifloxacin Allergy (Unknown, Verified 08/17/24 10:01) Unknown codeine Adverse Reaction (Intermediate, Verified 08/17/24 10:01) Abdominal Pain morphine Adverse Reaction (Intermediate, Verified 08/17/24 10:01) Abdominal Pain HPI HPI 1 mos FUV.: Details: LAST VISIT IBS (irritable bowel syndrome) Family history of Crohn's disease Postprandial abdominal bloating GERD (gastroesophageal reflux disease) Constipation Diverticulosis Plan Lab results and CT scan reviewed with patient again. Continues to have trouble emptying her bowels. Will order Dulcolax, however if this will not work patient will call us next week and we can start her on Linzess. Patient is experiencing IBS symptoms with constipation. Patient was encouraged to increase fluid intake and activity to promote better bowel motility. Patient had completely normal CT scan. Her pain is in left lower quadrant, no diverticulitis on CT scan. Continue low FODMAP diet. Patient will return in 3 weeks. We would like to send her for colonoscopy, however patient will need to move her bowels better. She is agreeable to current plan of care and verbalizes understanding of instructions. She was given the opportunity to ask questions and all questions answered. ? Thank you for allowing me to participate in her care Medications New bisacodyl (Dulcolax (bisacodyl)) 10 mg (2 x 5 mg) PO BEDTIME 60 tabs 4RF TODAY'S VISIT Patient is here today for follow-up she continues to have abdominal pain in the left lower quadrant. Patient reports that she is taking Dulcolax and stool softeners and still is not moving her bowels well. Patient reports that she only takes oxycodone as needed. She states that it is not very often. She states that she is drinking fluids. Pain without tenderness. She reports that the pain sometimes feels stabbing. Patient denies feeling gassy. Denies any mucus or blood in her stools. Still is constipated and not every day she is able to have a bowel movement. Patient denies any nausea or vomiting. Denies any fever or chills. Denies any other GI concerning symptoms. Patient had normal CT scan in just couple of months ago. [facility] Medical History Traumatic rupture of rotator cuff of right shoulder Constipation Anxiety GERD (gastroesophageal reflux disease) Arthritis Family history of Crohn's disease Hyperlipidemia Surgical History Hx of colonoscopy (~2022) Family History Family/Other Crohn disease Review of Systems Const Denies weight gain and Denies weight loss ENT Reports no additional complaints, Denies dysphagia and Denies odynophagia Card Reports no additional complaints Resp Reports no additional complaints GI Reports abdominal pain (LLQ), Denies belching, Denies melena, Reports bloating, Denies change in bowel habits, Reports constipation, Denies dysphagia, Denies excessive flatus, Denies dyspepsia, Denies heartburn, Denies diarrhea, Denies loose stools, Denies nausea, Denies odynophagia and Denies vomiting Reports no additional complaints Musc Reports no additional complaints Neuro Reports no additional complaints Psych Reports no additional complaints Endo Reports no additional complaints Physical Exam Vital Signs: Last Vital Signs Pulse 82 08/17/24 09:58 BP 140/64 H 08/17/24 09:58 Pulse Ox 100 08/17/24 09:58 Oxygen Delivery Method Room Air 08/17/24 09:58 BMI result Body Mass Index 20.4 Const General: healthy appearing, no acute distress and well developed Nutritional Appearance: well nourished Orientation/consciousness: patient oriented x3 Resp Effort & Inspection: normal respiratory effort, able to speak in complete sentences, no tracheal deviation and symmetric chest movement Auscultation: clear to auscultation bilaterally Cardio Rate: regular rate GI Inspection: Yes normal to inspection and No distended Palpation (GI): Soft to palpation, not firm, nontender and No hepatosplenomegaly present Auscultation: normal bowel sounds General: Yes no CVA tenderness Back/Spine/Pelvis Back: no CVA tenderness Skin General skin exam: elasticity normal, turgor normal and dry skin Neuro General: patient oriented x3 Psych Appearance: grossly normal Mental Status: mental status grossly normal Assessment & Plan Assessment & Plan (1) Family history of Crohn's disease: Code(s): Z83.79 - Family history of other diseases of the digestive system Category: Medical (2) IBS (irritable bowel syndrome): Code(s): K58.9 - Irritable bowel syndrome, unspecified Qualifiers: Irritable bowel syndrome type: with constipation Qualified Code(s): K58.1 - Irritable bowel syndrome with constipation (3) Postprandial abdominal bloating: Code(s): R14.0 - Abdominal distension (gaseous) (4) GERD (gastroesophageal reflux disease): Code(s): K21.9 - Gastro-esophageal reflux disease without esophagitis Qualifiers: Esophagitis presence: esophagitis presence not specified Qualified Code(s): K21.9 - Gastro-esophageal reflux disease without esophagitis (5) Constipation: Code(s): K59.00 - Constipation, unspecified Qualifiers: Constipation type: slow transit constipation Qualified Code(s): K59.01 - Slow transit constipation (6) Diverticulosis: Code(s): K57.90 - Diverticulosis of intestine, part unspecified, without perforation or abscess without bleeding Plan Patient was encouraged to increase fiber in her diet. Increase fluid intake and activity to promote better bowel motility. Patient can start taking Linzess 145 mcg daily. May use Dulcolax in the evening if not successful. Patient will call our office in 1 week to let us know how she is doing. She will be scheduled to go for colonoscopy. Message sent to surgical schedulers to book patient for procedure. What to expect before during and after procedure discussed with patient. Patient denies any issues with anesthesia in the past. No history of sleep apnea. Patient is on low-dose aspirin. Patient denies any cardiac or respiratory symptoms. Stressed the importance of good bowel prep and clear liquid diet day before procedure. I will see her after the procedure, sooner on as needed basis. She is agreeable to this plan and verbalizes understanding of instructions. She was given the opportunity to ask questions and all questions answered. Thank you for allowing me to participate in her care Medications: New linaclotide (Linzess) 145 mcg PO DAILY 30 caps 2RF polyethylene glycol 3350 (Miralax) As directed by gastro[facility]ology department at [facility] 238 grams PO ONCE 238 grams 0RF Z12.11 - Encounter for screening for malignant neoplasm of colon Coding Level of Care Code Est Pt Level 3 (34898) Diagnoses Family history of Crohn's disease Z83.79 Irritable bowel syndrome with constipation K58.1 Irritable bowel syndrome type: with constipation Postprandial abdominal bloating R14.0 Gastroesophageal reflux disease, unspecified whether esophagitis present K21.9 Esophagitis presence: esophagitis presence not specified Slow transit constipation K59.01 Constipation type: slow transit constipation Diverticulosis K57.90 Time Spent (min) 30 Comment 20 minutes spent with patient and additional 10 minutes spent reviewing her records
--- OUTSIDE RECORDS SUMMARY | 2024-08-17 11:11 | XMS_ITS | Clinical Summary ---
Author Organization [address] [place] [address] [place] [phone] Phone Care Team Providers Care [employer] Defence [employer] Name Role Phone Kathia Durand Primary Care Provider Allergies Active Allergy Reactions Criticality Noted Date Comments Cefaclor 03/27/2018 Erythromycin 03/27/2018 Moxifloxacin 03/27/2018 Medications inclisiran (Leqvio) 284 mg/1.5 mL syringe injcetion Inject 1.5 mL into the skin Every 3 Months. 4 Active omega 5-lzo-lbx-fish oil (Fish OiL) 1,200 (144-216) mg capsule Take by mouth 2 times daily. 2 Active UNABLE TO FIND Take by mouth 1 (one) time each day. VITAMIN D OR Active ALPRAZolam (XANAX) 1 mg tablet Take 1 mg by mouth at bedtime. Active oxyCODONE-acetamino phen (PERCOCET) 7.5-325 mg per tablet Take 1 [...] EVERY DAY 90 tablet 1 5 Active ezetimibe (ZETIA) 10 mg tabletIndications:B ilateral carotid artery disease, unspecified type (CMS/HCC V24),Coronary artery calcification,Mixed hyperlipidemia Take 1 tablet (10 mg total) by mouth 1 (one) time each day. 90 each 3 5 07/30/19 26 Active Active Problems Problem Noted Date Diagnosed Date Carotid bruit 06/23/2023 Carotid artery disease ([facility] V24) 01/12/2021 Overview (03/22/2024): Last Assessment & Plan: [...] Encounters Date Type Department Care Team Description 07/29/2024 Telephone [facility] [address] [place] [address] Verona Kimbrough MA Results (Lipid 07/28/24) 06/11/2024 Telephone [facility] [address] [place] [address] Karan Pedroza MD Chest Pain from Last 3 Months Medical History Medical [...] (2 of 2 - PPSV23) 07/10/2019 07/09/2018 Colorectal Cancer Screening: Colonoscopy 03/17/2022 Depression Screening [...] - Td or Tdap) 06/10/2029 06/10/2019, 07/30/2017 Cholesterol Screening (Lipid Panel) 07/28/2029 07/28/2024 HIB Vaccines Aged Out No longer eligi [...] Procedure Name Priority Date/Time Associated Diagnosis Comments LIPID PANEL Routine 07/28/2024 12:25 PM EDT ANNUAL BMP BLOOD TEST Routine 08/04/2000 from Last 3 Months or Most Recently Relevant to Health Maintenance Results * (ABNORMAL) Lipid panel (07/28/2024 12:25 PM EDT) Cholesterol Total 255(H) 100 - 199 mg/dL [facility] Triglycerides 69 0 - 149 mg/dL [facility] HDL Cholesterol 87 >39 mg/dL [facility] VLDL Cholesterol Calculated 11 5 - 40 mg/dL [facility] LDL Chol Calc (NIH) 157(H) 0 - 99 mg/dL [facility] 07/28/2024 12:2 5 PM EDT 07/28/2024 Narrative [facility] - 07/29/2024 4:06 AM EDT Performed at: ??01 - [facility] [address] ??[id number] Tractor Sweeper Operator: Kaylie Duffy MD, Phone: ??[phone] us Karan Pedroza MD LAB BLOOD ORDERABLES Final Resu lt [facility] * Annual BMP Blood Test (08/04/2000) [facility] Annual BMP Blood Test abstracted Historical Provider HEALTH MAINTENANCE Final Result from Last 3 Months or Most Recently Relevant to Health Maintenance Insurance MEDICAID - [place] MEDICARE Advance Directives Documents on File Type Date 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
== END 2024-08-17 10:25 | disposition home or self-care (01) ==
LOC: HO.HGI 09:56
PROVIDERS: PCP Physician Assistant Medical; Visit Provider Nurse Practitioner Family
DX: Z83.79 Family history of other diseases of the digestive system (principal); K58.1 Irritable bowel syndrome with constipation; R14.0 Abdominal distension (gaseous); K21.9 Gastro-esophageal reflux disease without esophagitis; K59.01 Slow transit constipation; K57.90 Diverticulosis of intestine, part unspecified, without perforation or abscess without bleeding
CPT/HCPCS: 99213

== ENCOUNTER → 2024-08-17 09:55 | Outpatient (BNVA) | payer MEDICARE, MEDICAID, SELFPAY | PROVIDERS: PCP Physician Assistant Medical; Visit Provider Nurse Practitioner Family | DX: R14.0 Abdominal distension (gaseous) (principal); K58.1 Irritable bowel syndrome with constipation; K21.9 Gastro-esophageal reflux disease without esophagitis; K59.01 Slow transit constipation; K57.90 Diverticulosis of intestine, part unspecified, without perforation or abscess without bleeding; Z83.79 Family history of other diseases of the digestive system | CPT/HCPCS: 99212 ==